=== PATIENT | female | born 1945 | race Caucasian/White ===

== ENCOUNTER 2019-02-02 15:39 | Emergency (ER) | payer OTHER ==
[2019-02-02 15:44] VITALS: BMI 36.6
--- NOTE | 2019-02-02 16:14 | ED PDOC ---
Arrival/HPI - General Time Seen by Provider: 02/02/19 15:41 Historian: Family (daughter) - History of Present Illness Narrative History of Present Illness (Text): 02/02/19 15:41 Josselin Michaels is a 73 year old female, with a past medical history of as thma, who presents to the emergency department complaining of asthma exacerbation since this morning. Daughter states current exacerbation symptoms are worse than patient's previous history of exacerbations.Per daughter, patient was sick several days ago with cough. Patient takes nebulizer treatments at home and denies taking steroids. Patient's daughter notes sick contact with grandson and two weeks ago. Patient denies recent travel, chills, headache, dizziness, abdominal pain, nausea, vomiting, diarrhea, back pain, neck pain, or any other complaint. Time/Duration: 4-6 hours (this morning) Symptom Onset: Sudden Symptom Course: Unchanged Activities at Onset: Light Context: Home Past Medical History - Provider Review Nursing Documentation Reviewed: Yes Family/Social History - Physician Review Nursing Documentation Reviewed: Yes Family/Social History: No Known Family HX Allergies/Home Meds Allergies/Adverse Reactions: Allergies No Known Allergies Allergy (Verified 02/02/19 15:43) Review of Systems - Physician Review All systems were reviewed & negative as marked: Yes - Review of Systems Constitutional: absent: Fevers Respiratory: Other (asthma exacerbation) Neurological: absent: Dizziness Physical Exam - Physical Exam Narrative Physical Exam (Text): 02/02/19 15:41 Constitutional: No acute distress. Head: Normocephalic. Atraumatic. Eyes: PERRL. ENT: Moist mucous membranes. Neck: Supple. Cardiovascular: Regular rate. Chest: No tenderness. Respiratory: Diffuse wheezing bilaterally. Decreased breath sounds. GI: Soft. Nontender. Nondistended. Back: No CVA tenderness. Musculoskeletal: No tenderness or swelling of extremities. Skin: No rash. Neurologic: Alert, no focal deficit. Vital Signs Reviewed: Yes Vital Signs Temp Pulse Resp BP Pulse Ox 02/02/19 15:49 98.1 F 87 16 150/92 H 100 Temperature: Afebrile Blood Pressure: Normal Pulse: Regular Respiratory Rate: Normal Appearance: Positive for: Well-Appearing, Non-Toxic, Comfortable Pain Distress: None Mental Status: Positive for: Alert and Oriented X 3 Medical Decision Making ED Course and Treatment: 02/02/19 15:41 Impression: Patient is a 73 year old female with a history of asthma who presents to the emergency department complaining of asthma exacerbation Differential Diagnosis included but are not limited to: asthma exacerbation, r/o PNA, r/o influenza Plan: -- EKG -- Labs -- Chest X-ray -- Duoneb 3mg/.5mg -- SOLU-Medrol -- Influenza A B -- Reassess and disposition Progress Notes: Patient felt better after treatment, feels well to go home. Instructed to continue albuterol at home q4 and steroids, return to ED for need for nebulizers more often than this or other worsening symptoms. - RAD Interpretation Radiology Orders: 02/02/19 15:58 CHEST PORTABLE [RAD] Stat - Medication Orders Current Medication Orders: Albuterol/Ipratropium (Duoneb 3 Mg/0.5 Mg (3 Ml) Ud) 3 ml IH Q15M ANJANA Stop: 02/02/19 16:31 Discontinued Medications Methylprednisolone (Solu-Medrol) 125 mg IVP STAT STA Stop: 02/02/19 15:59 - Scribe Statement The provider has reviewed the documentation as recorded by the Scribe Rahat Sprague All medical record entries made by the Scribe were at my direction and personally dictated by me. I have reviewed the chart and agree that the record accurately reflects my personal performance of the history, physical exam, medical decision making, and the department course for this patient. I have also personally directed, reviewed, and agree with the discharge instructions and disposition. Disposition/Present on Arrival - Present on Arrival Any Indicators Present on Arrival: No - Disposition Have Diagnosis and Disposition been Completed?: Yes Diagnosis: Asthma exacerbation Disposition: HOME/ ROUTINE Disposition Time: 18:22 Patient Plan: Discharge Condition: GOOD Discharge Instructions (ExitCare): Asthma, Adult (DC) Prescriptions: Albuterol 0.083% [Albuterol Sulfate 3 Ml] 3 ml IH Q4 #150 neb Prednisone [Deltasone] 3 tab PO DAILY #12 tablet Referrals: Fernando Delcid MD [Primary Care Provider] - Follow up with primary Forms: [id number] (Arabic)
[2019-02-02] MEDS: Albuterol-Ipratrop 3 mg / 0.5 (3 ml) UD IH SCH ×3 (16:15→16:28)
[2019-02-02 16:37] LABS: BASO # 0.03 K/mm3 (0.0-2.0); BASO % 0.3 % (0.0-3.0); EOS # 0.2 (0.0-0.7); EOS % 1.8 % (1.5-5.0); HEMOGLOBIN 11.7 g/dL (12.0-16.0); LYMPH % 20.2 % (22.0-35.0); MEAN CELL VOLUME 94.4 fl (80.0-105.0); MEAN CORPUSCULAR HEMOGLOBIN 29.5 pg (25.0-35.0); MEAN CORPUSCULAR HGB CONC 31.3 g/dl (31.0-37.0); MEAN PLATELET VOLUME 10.7 fl (7.0-11.0); MONO # 0.8 (0.1-0.6); MONO % 7.7 % (1.0-6.0); RBC 3.96 10^6/uL (3.5-6.1); RED CELL DISTRIBUTION WIDTH 13.1 % (11.5-14.5); WHITE BLOOD COUNT 9.8 10^3/uL (4.5-11.0)
[2019-02-02 16:45] LABS: INR 1.06; PARTIAL THROMBOPLASTIN TIME 47.9 Seconds (26.9-38.3); PROTHROMBIN TIME 11.8 SECONDS (9.4-12.5)
[2019-02-02 16:55] LABS: ALBUMIN 4.2 g/dL (3.0-4.8); ALT/SGPT < 6 U/L (7-56); AST/SGOT 15 U/L (14-36); BLOOD UREA NITROGEN 22 mg/dL (7-21); CALCIUM 9.5 mg/dL (8.4-10.5); GFR NON-AFRICAN AMERICAN 44
[2019-02-02 19:12] VITALS: RESP 20
[2019-02-02 19:15] VITALS: O2SAT 96
[2019-02-02 19:23] VITALS: BP 122/58; PULSE 90; TEMP 97.6
--- NOTE | 2019-02-02 21:59 | CARD ---
APPROVED REPORT Date of service: 02/02/2019 EKG Measurement Heart [id number] <Conclusion> Normal sinus rhythm Nonspecific ST abnormality Abnormal ECG
--- NOTE | 2019-02-03 09:28 | RAD ---
Date of service: 02/02/2019 HISTORY: dyspnea COMPARISON: No prior. FINDINGS: LUNGS: No active pulmonary disease. PLEURA: No significant pleural effusion identified, no pneumothorax apparent. CARDIOVASCULAR: No aortic atherosclerotic calcification present. Normal cardiac size. No pulmonary vascular congestion. OSSEOUS STRUCTURES: No significant abnormalities. VISUALIZED UPPER ABDOMEN: Normal. OTHER FINDINGS: None. IMPRESSION: No active disease.
== END 2019-02-02 19:25 | disposition home or self-care (01) ==
LOC: ED 15:39
DX: J45.901 Unspecified asthma with (acute) exacerbation (principal)
CPT/HCPCS: 71045; 80053; 85025; 85610; 85730; 87804; 93005; 96374; 99283; J2930